=== PATIENT | female | born 1970 | race Caucasian/White ===

== ENCOUNTER 2018-11-04 17:30 | Emergency (ER) | payer MEDICARE ==
[~2018-11-04] VITALS: Ht 160 cm; Wt 54.9 kg
[~2018-11-04 17:30] MED LIST: HYDR-3105 PO; LEVO50TA6 PO; LORA0.5T PO; LUBI24CA7 PO; MELO15TA24 PO; OXYC60TA9 PO; OXYM10TA PO; VARE1TAB20 PO
[2018-11-04] MEDS ORDERED: ZOFRAN IM STA (17:49)
[2018-11-04 17:55] VITALS: BP 149/96
[2018-11-04] MEDS ORDERED: KENALOG-40 ONE (17:57)
[2018-11-04] MEDS ORDERED: TORADOL ONE (17:57)
[2018-11-04] MEDS ORDERED: ZOFRAN ONE (17:57)
[2018-11-04] MEDS ORDERED: TORADOL IM ONE (18:00)
[2018-11-04] MEDS ORDERED: KENALOG-40 IM ONE (18:00)
--- NOTE | 2018-11-04 18:10 | ER.PDOC ---
General Chief Complaint: Headache Stated Complaint: HEADACHE Time seen by MD: 18:11 Source: patient Exam Limitations: no limitations History of Present Illness Timing/Duration: 4-6 hours Severity/Quality: moderate Prior Headaches/Recent Trauma: chronic headaches, occasional headaches Modifying Factors: improves with medication Prior symptoms/Treatment: Similar symptoms previous Allergies: Coded Allergies: No Known Allergies (Unverified , 08/09/16) Home Meds Reported Medications Meloxicam (MELOXICAM) 15 Mg Tablet, 15 MG PO DAILY, TABLET 08/09/16 Oxymorphone Hcl (OPANA) 10 Mg Tablet, 10 MG PO BID, TABLET 08/09/16 Lorazepam (LORAZEPAM) 0.5 Mg Tablet, 0.5 MG PO PRN PRN for ANXIETY, TABLET 08/09/16 Hydrocodone Bit/Acetaminophen (NORCO 10-325) 1 Each Tablet, 1 TAB PO QID PRN for PAIN, #120 TAB 05/08/16 Varenicline Tartrate (CHANTIX) 1 Each Tab.ds.pk, 1 EACH PO BID 05/08/16 Lubiprostone (AMITIZA) 24 Mcg Capsule, 1 CAP PO BID, #60 CAP 3 Refills 07/16/15 Levothyroxine Sodium (LEVOTHYROXINE SODIUM) 50 Mcg Tablet, 1 TAB PO DAILY, #90 TAB 3 Refills 07/16/15 Past Medical History Medical History: thyroid disease Surgical History: cancer surgery Social History Smoking: non-smoker Alcohol Use: occassionally Drug Use: none Reviewed Nursing Reviewed: Vital Signs, Abn. Noted Review of Systems All Other Systems: Reviewed and Negative Physical Exam General Appearance: WD/WN, Anxious Head/Eyes: eyes nml inspection, no facial swelling, no nystagmus, PERRL ENT: nml ENT inspection, pharynx nml Neck: nml inspection, Supple Cardiovascular: Normal Peripheral Pulses, Regular Rate, Rhythm, No Edema, No Gallop, No JVD, No Murmur Respiratory: chest non-tender, lungs clear, normal breath sounds, no respira tory distress, no accessory muscle use Gastrointestinal: Normal Bowel Sounds, No Organomegaly, No Pulsatile Mass, Non Tender, Soft Back: Normal Inspection, No CVA Tenderness, No Vertebral Tenderness Extremities: Normal Range of Motion, Non-Tender, Normal Inspection, No Pedal Edema, No Calf Tenderness, Normal Capillary Refill Psychiatric: Alert, Oriented x 3 Cranial Nerves: Normal Hearing, Normal Speech, PERRL Coordination/Gait: Normal Finger to Nose, Normal Gait Motor/Sensory: No Motor Deficit, No Sensory Deficit, No Pronator Drift, Negative Babinski's Sign Skin: Warm/Dry, Normal Color Lymphatic: No Adenopathy Results/Orders Results/Orders Orders - YELENA DAVIS MD Triamcinolone Acetonide (Kenalog-40) (11/04/18 18:00) Ketorolac Tromethamine (Toradol) (11/04/18 18:00) Ondansetron Hcl (Zofran) (11/04/18 17:49) Ondansetron Hcl (Zofran) (11/04/18 17:57) Ketorolac Tromethamine (Toradol) (11/04/18 17:57) Triamcinolone Acetonide (Kenalog-40) (11/04/18 17:57) Vital Signs Date Time Temp Pulse Resp B/P (MAP) Pulse Ox O2 Delivery O2 Flow Rate FiO2 11/04/18 17:55 98.4 117 18 149/96 (113) 98 Room Air 98.4 11/04/18 17:49 98.2 118 18 98 Room Air 98.2 11/04/18 17:49 98.4 117 18 98.4 Departure Time of Disposition: 18:22 Disposition: 01 HOME, SELF-CARE Impression: Primary Impression: Headache Condition: Improved Referrals: MARILEE VERDIN COMPUTER GRAPHICS ILLUSTRATOR (PCP) PRIMARY CARE PROVIDER Duration or Time Spent with Pa: 30 min YELENA DAVIS MD November 04, 2018 18:10
[2018-11-04 18:35] VITALS: BP 149/96
== END 2018-11-04 18:35 | disposition home or self-care (01) ==
LOC: ER 17:30
DX: R51 Headache (principal); R07.9 Chest pain, unspecified; E07.9 Disorder of thyroid, unspecified; Z79.899 Other long term (current) drug therapy
CPT/HCPCS: 96372; 99284; J1885; J2405; J3301

== ENCOUNTER → 2020-02-19 | Outpatient (CLI) | payer MEDICARE ==
[2020-02-19 11:37] LABS: BASOPHIL % 0.1 % (0.0-0.2); EOSINOPHIL # 0.4 10^3/uL (0.0-0.2); LYMPHOCYTES # 2.17 10^3/uL1 (1.0-4.8); LYMPHOCYTES % 31.7 % (24.0-44.0); MEAN CORP HGB 32.1 pg (26-34); MONOCYTES # 0.6 10^3/uL (0.3-0.8); NEUTROPHIL # 3.7 10^3/uL (1.8-7.7); NEUTROPHILS % 53.9 % (41.0-85.0); PLATELET COUNT 165 10^3/uL (150-400); RED CELL DISTRIBUTION WIDTH 12.8 % (11.5-14.5)
[2020-02-19 12:04] LABS: CALCIUM 8.7 mg/dL (8.4-10.5)
== END | disposition home or self-care (01) ==
LOC: LAB 11:15
PROVIDERS: ATTEND Nurse Practitioner Family
DX: R91.1 Solitary pulmonary nodule (principal); R04.2 Hemoptysis; E05.90 Thyrotoxicosis, unspecified without thyrotoxic crisis or storm; Z79.899 Other long term (current) drug therapy
CPT/HCPCS: 80053; 84436; 84439; 84443; 85025

== ENCOUNTER 2020-12-08 20:23 | Emergency (ER) | payer MEDICARE ==
[~2020-12-08] VITALS: Ht 160 cm; Wt 56.7 kg
[~2020-12-08 20:23] MED LIST changes: +CIPR500T86 PO; +METR500T PO; +PROM12.57 PO
[2020-12-08 21:14] VITALS: BP 135/91
--- NOTE | 2020-12-08 21:19 | NUR ---
Patient presents to ED with C/O headache for two days. States she "has history of brain tumors and spoke with her oncology doctor and he said to go to the ER to be evaluated." Pt states pain is severe, throbbing, constant from left frontal lobe to temportal and occiptal regions.
--- NOTE | 2020-12-08 21:35 | ER.PDOC ---
General Chief Complaint: Headache Stated Complaint: HEADACHE Time seen by MD: 21:28 Source: patient Exam Limitations: no limitations History of Present Illness Initial Comments PAtient presentt o the ER by recommendation of her cancer doctor to be scan in the brain due to the new onset of Headache., Patient has hx of a brain tumor and her oncologyst want to be sure that is not swelling or bleeding in the brain Timing/Duration: 24 hours, unknown, constant Severity/Quality: moderate Prior Headaches/Recent Trauma: no recent headache/trauma, chronic headaches Prior symptoms/Treatment: Similar symptoms previous, Treated by Doctor Allergies: Coded Allergies: No Known Allergies (Unverified , 08/09/16) Home Meds Active Scripts Ciprofloxacin Hcl (CIPRO) 500 Mg Tablet, 500 MG PO BID for 10 Days, #20 TABLET Prov:BRADLEY ANN MD 10/09/20 Promethazine Hcl (PROMETHAZINE HCL) 12.5 Mg Tablet, 12.5 MG PO TIDP for nausea for 3 Days, #10 TAB-CAP Prov:BRADLEY ANN MD 10/09/20 Metronidazole (FLAGYL) 500 Mg Tablet, 500 MG PO TID for 10 Days, #30 TAB-CAP Prov:BRADLEY ANN MD 10/09/20 Reported Medications Meloxicam (MELOXICAM) 15 Mg Tablet, 15 MG PO DAILY, TABLET 08/09/16 Lorazepam (LORAZEPAM) 0.5 Mg Tablet, 0.5 MG PO PRN PRN for ANXIETY, TABLET 08/09/16 Lubiprostone (AMITIZA) 24 Mcg Capsule, 1 CAP PO BID, #60 CAP 3 Refills 07/16/15 Levothyroxine Sodium (LEVOTHYROXINE SODIUM) 50 Mcg Tablet, 1 TAB PO DAILY, #90 TAB 3 Refills 07/16/15 Past Medical History Medical History: high cholesterol, thyroid disease, other Surgical History: back Social History Alcohol Use: none Drug Use: none Review of Systems Constitutional: no symptoms reported Eyes: no symptoms reported Ears, Nose, Mouth, Throat: no symptoms reported Respiratory: no symptoms reported Cardiovascular: no symptoms reported Gastrointestinal: no symptoms reported Genitourinary: no symptoms reported Musculoskeletal: muscle pain, neck pain Skin: no symptoms reported Psychiatric/Neurological: no symptoms reported Physical Exam General Appearance: No Apparent Distress Head/Eyes: eyes nml inspection, no facial swelling, no nystagmus ENT: nml ENT inspection Cardiovascular: Normal Peripheral Pulses Respiratory: chest non-tender Gastrointestinal: Normal Bowel Sounds, No Organomegaly Extremities: Normal Range of Motion, Non-Tender Cranial Nerves: Normal Hearing, Normal Speech, PERRL Coordination/Gait: Normal Finger to Nose, Normal Gait, Negative Romberg's Sign Motor/Sensory: No Motor Deficit, No Sensory Deficit Skin: Warm/Dry Results/Orders Results/Orders Orders - MARY JANE DAWN MD Ct Head Wo Contrast (12/08/20 21:30) Morphine Sulfate (Morphine Sulfate) (12/08/20 22:00) Promethazine Hcl (Phenergan) (12/08/20 21:40) Dexamethasone Sodium Phosp/Pf (Dexametha (12/08/20 21:40) Dexamethasone Sodium Phosphate (Decadron (12/08/20 21:50) Vital Signs Date Time Temp Pulse Resp B/P (MAP) Pulse Ox O2 Delivery O2 Flow Rate FiO2 12/08/20 21:14 98.1 107 18 135/91 (106) 100 12/08/20 21:14 98.1 107 18 100 12/08/20 21:14 98.1 107 18 Administered Medications Medications (Trade) Dose Ordered Sig/Dinora Route PRN Reason Start Time Stop Time Status Last Admin Dose Admin Morphine Sulfate (Morphine Sulfate) 4 mg Q4H PRN IM PAIN 7 - 10 12/08/20 22:00 01/07/21 21:59 UNV 12/08/20 21:53 4 MG Promethazine HCl (Phenergan) 25 mg STAT STAT IM 12/08/20 21:40 12/08/20 21:41 UNV 12/08/20 21:50 25 MG Progress Progress Patient headache had subside completely. Patient is ready to be DC EKG/XRAY/CT/US CT Comments: No epidural subdural or arachnoid hemorrhage, Brain tumor is present, ER DEPART Departure Time of Disposition: 22:58 Disposition: 01 HOME / SELF CARE / HOMELESS Impression: Primary Impression: Headache Additional Impression: Brain mass Condition: Improved Referrals: MARILEE VERDIN TEMPERATURE REGULATOR PYROMETER (PCP) PRIMARY CARE PROVIDER Duration or Time Spent with Pa: 15 Problem Qualifiers MARY JANE DAWN MD Dec 08, 2020 21:35
[2020-12-08] MEDS ORDERED: DEXAMETHASONE 10 MG/ML VIAL IV STA (21:40)
[2020-12-08] MEDS ORDERED: PHENERGAN IM STA (21:40)
[2020-12-08] MEDS ORDERED: DECADRON ONE (21:50)
[2020-12-08] MEDS ORDERED: MORPHINE SULFATE ONE (21:51)
[2020-12-08] MEDS ORDERED: PHENERGAN ONE (21:51)
[2020-12-08] MEDS ORDERED: MORPHINE SULFATE IM PRN (22:00)
--- NOTE | 2020-12-08 22:04 | DIREP ---
PROCEDURE:CT HEAD OR BRAIN W/O CONTRAST COMPARISON:[facility], CT, CT HEAD BRAIN W/O CONTRAST, 09/07/2015, 06:15 PM. INDICATIONS:HEADache HX of brain tumors TECHNIQUE:CT images were created without intravenous contrast. FINDINGS: VENTRICLES:The ventricles are normal in size and configuration. CEREBRUM:There is a mass lesion in the left occipitotemporal lobe measuring approximately 2.6 x 2.6 cm. Intrinsic hyperdensity may represent intratumoral hemorrhage. Surrounding vasogenic edema. Mild local mass effect without midline shift or herniation. CEREBELLUM:Negative. BRAINSTEM:Negative. BASAL CISTERNS:Negative. HEMORRHAGE:Yes, see above MASS LESION:Yes, see above ACUTE INFARCT:No SKULL:Occipital craniectomy changes appear stable. No aggressive osseous lesion identified. SINUSES:Normal. OTHER:None CONCLUSION: 1. Mass lesion in the left occipitotemporal lobe with surrounding vasogenic edema. Intrinsic hyperdensity may represent intratumoral hemorrhage. Mild local mass-effect without midline shift or herniation. Recommend further evaluation with MRI without and with IV contrast. This lesion appears new compared with the study in 2016. 2. Stable occipital craniectomy changes without evidence of posterior fossa mass lesion. This report was called by telephone at 10:01 pm on December 08, 2020 to Jimmy Sears Dictated by: Ochoa Mayes M.D. on 12/08/2020 at 09:54 PM
== END 2020-12-08 23:20 | disposition home or self-care (01) ==
LOC: ER 20:23
DX: G93.89 Other specified disorders of brain (principal); E07.9 Disorder of thyroid, unspecified; E78.00 Pure hypercholesterolemia, unspecified; Z79.1 Long term (current) use of non-steroidal anti-inflammatories (NSAID); Z79.899 Other long term (current) drug therapy
CPT/HCPCS: 70450; 96372; 96374; 99285; J1100; J2270; J2550; 99284